=== PATIENT | male | born 1955 | race Caucasian/White ===

== ENCOUNTER 2020-09-06 17:31 | Emergency (ER) | payer OTHER ==
[~2020-09-06] VITALS: Ht 185.4 cm; Wt 117.9 kg
[~2020-09-06 17:31] MED LIST: ASPIR 8181 MG PO; CEPHALEXIN 500500 M3 PO; NORCO 5-325 TA1 EACH PO
[2020-09-06 18:48] VITALS: BP 153/89
== END 2020-09-06 18:49 | disposition home or self-care (01) ==
LOC: M.ERS 17:31
DX: Z20.828 Contact with and (suspected) exposure to other viral communicable diseases (principal); E78.00 Pure hypercholesterolemia, unspecified; Z98.890 Other specified postprocedural states; Z79.82 Long term (current) use of aspirin

== ENCOUNTER 2020-09-19 11:44 | Emergency (ER) | payer OTHER ==
[~2020-09-19] VITALS: Ht 185.4 cm; Wt 120.2 kg
[2020-09-19 12:30] LABS: ABSOLUTE LYMPHOCYTES 0.7 thou/uL (0.8-5.3); ABSOLUTE MONOCYTES 0.4 thou/uL (0.0-1.2); ABSOLUTE NEUTROPHILS 4.2 thou/uL (1.6-8.1); BASOPHILS 0.3 %; EOSINOPHILS 0.2 %; HEMATOCRIT 41.3 % (42.0-52.0); HEMOGLOBIN 13.9 gm/dL (14.0-18.0); INFLUENZA A ANTIGEN Negative (Negative); INFLUENZA B ANTIGEN Negative (Negative); LYMPHOCYTES 12.9 %; MCH 30.4 pg (26.0-34.0); MCHC 33.7 g/dL (28.0-37.0); MCV 90.2 fL (80.0-100.0); MONOCYTES 7.9 %; MPV 9.1 fl. (7.2-11.1); NUCLEATED RBCS 0 /100WBC; PLATELET COUNT* 113 thou/uL (150-400); POLYS 78.7 %; RBC 4.58 mil/uL (4.50-6.00); RDW-CV 14.9 % (10.5-14.5); WBC 5.3 thou/uL (4.0-11.0)
[2020-09-19 12:36] LABS: CALCIUM 8.3 mg/dL (8.5-10.1); CREATININE 1.3 mg/dL (0.6-1.3); POTASSIUM 3.9 mmol/L (3.5-5.1)
[2020-09-19] MEDS ORDERED: MUCINEX600 MG PO (12:37)
[2020-09-19 12:40] LABS: INR 1.1; PROTIME 11.1 Seconds (9.20-11.50)
[2020-09-19 12:47] LABS: TOTAL BILIRUBIN 0.6 mg/dL (<0.1-1.0); TOTAL PROTEIN 7.1 g/dL (6.4-8.2)
[2020-09-19] MEDS ORDERED: PROMETH-CODEIN 65 ML PO (12:49)
[2020-09-19] MEDS ORDERED: VENTOLIN HFA 1818 GM INH (12:49)
[2020-09-19] MEDS ORDERED: ONDANSETRON HCL4 M2 PO (12:49)
[2020-09-19] MEDS ORDERED: ZPAK PO (12:49)
[2020-09-19] MEDS ORDERED: PREDNISONE 20 M20 MG PO (12:49)
[2020-09-19 14:11] VITALS: BP 120/70
--- NOTE | 2020-09-20 17:52 | EKG ---
[place] [address] ELECTROCARDIOGRAM REPORT Name: RAISSA RUIZ Room: [facility]#: [id number] Admission: 09/19/20 Attend Phys: Discharge: 09/19/20 Date of : 53 Date of Service: 09/19/20 1210 Report #: [id number] THIS REPORT FOR: //name// [facility] ED Test Date: 2020-09-19 Test Time: 12:10:35 Pat Name: RAISSA RUIZ Department: Room: Gender: Batching Operator: [facility] : 1955 Requested By: Adrienne Penn Order Number: [id number] MD: Rohan Harris Measurements Intervals [place] Rate: 85 P: 31 SD: 139 QRS: 9 QRSD: 100 T: 44 QT: 335 QTc: 399 Interpretive Statements Sinus rhythm RSR' in V1 or V2, right VCD or RVH Baseline wander in lead(s) II,III,aVF Compared to ECG 08/01/2009 21:16:07 Right ventricular hypertrophy now present RSR' in V1 or V2 now present Electronically Signed On 09-20-2020 17:52:19 CDT by Rohan Harris [email or web address] <ELECTRONICALLY SIGNED> By: Rohan Harris MD, FACC 09/20/20 1752 09 09 Rohan Harris MD, FACC /EPI
== END 2020-09-19 14:12 | disposition home or self-care (01) ==
LOC: M.ERS 11:44
PROVIDERS: Emergency Medicine Emergency Medical Services; Nurse Practitioner Family
DX: U07.1 COVID-19 (principal); E78.00 Pure hypercholesterolemia, unspecified

== ENCOUNTER 2021-06-29 12:24 | Emergency (ER) | payer OTHER ==
[~2021-06-29] VITALS: Ht 185.4 cm; Wt 122.5 kg
[~2021-06-29 12:24] MED LIST changes: +MUCINEX600 MG PO; +ONDANSETRON HCL4 M2 PO; +PREDNISONE 20 M20 MG PO; +PROMETH-CODEIN 65 ML PO; +VENTOLIN HFA 1818 GM INH; +ZPAK PO
[2021-06-29 13:33] VITALS: BP 140/54
== END 2021-06-29 13:33 | disposition home or self-care (01) ==
LOC: M.ERS 12:24
DX: Z20.822 Contact with and (suspected) exposure to COVID-19 (principal); E78.00 Pure hypercholesterolemia, unspecified; Z79.82 Long term (current) use of aspirin; Z98.890 Other specified postprocedural states